=== PATIENT | female | born 1950 | race Hispanic/Latino ===

== ENCOUNTER → 2017-08-23 | Outpatient (CLI) | payer OTHER ==
[~2017-08-23] MED LIST: LIDOCAINE HCL 1% 20 ML VIAL MISC ONE
[2017-08-23 14:36] VITALS: BP 140/79
== END | disposition home or self-care (01) ==
LOC: WHH 10:15
PROVIDERS: ATTEND Podiatrist Foot & Ankle Surgery
DX: L60.0 Ingrowing nail (principal); L98.0 Pyogenic granuloma
CPT/HCPCS: 11730; G0463

== ENCOUNTER → 2017-09-06 | Outpatient (CLI) | payer OTHER ==
[2017-09-06 11:01] VITALS: BP 189/99
== END | disposition home or self-care (01) ==
LOC: WHH 09:40
PROVIDERS: ATTEND Podiatrist Foot & Ankle Surgery
DX: L97.521 Non-pressure chronic ulcer of other part of left foot limited to breakdown of skin (principal); L60.0 Ingrowing nail; L98.0 Pyogenic granuloma
CPT/HCPCS: G0463